=== PATIENT | male | born 1940 | race Caucasian/White ===

== ENCOUNTER → 2018-10-29 15:13 | Outpatient (CLI) | payer MEDICARE, SELFPAY ==
--- NOTE | 2018-10-29 | DI.RAD.S_ITS ---
PROCEDURE: XR CHEST 2V INDICATIONS: COUGH TECHNIQUE: 2 views of the chest were acquired. COMPARISON: None. FINDINGS: Surgical changes and devices: None. Lungs and pleura: Lungs are clear. No pleural effusions or pneumothorax. Mediastinum: Mediastinal contours are normal. Heart size is normal. There is diaphragmatic eventrations. Bones and chest wall: No suspicious bony abnormalities. Soft tissues appear unremarkable. IMPRESSION: No acute cardiopulmonary disease. Dictated by: Oumou Powers M.D. on 10/29/2018 at 17:41 Approved by: Oumou Powers M.D. on 10/29/2018 at 17:42
== END ==
PROVIDERS: PCP Student in an Organized Health Care Education/Training Program; Visit Provider Student in an Organized Health Care Education/Training Program
DX: R05 Cough (principal)
CPT/HCPCS: 71046

== ENCOUNTER → 2021-06-11 09:56 | Outpatient (CLI) | payer MEDICARE, SELFPAY ==
--- NOTE | 2021-06-27 07:54 | PM.CARDMON.1 ---
Economics Analyst Report Referral & Results Date Patient Seen: 06/11/21 Requesting provider: Elaine Kent Indication: Syncope Duration of monitoring (days): 10 Diary information: There were no patient events to review Data: Minimum heart rate identified was 46 beats per minute at 08:27 on 06/19/2021 Maximum sinus heart rate was 121 beats per minute at 10:42 on 06/19/2021 Maximum overall heart rate was 235 beats per minute at 10:41 on 06/15/2021 during a 4 beat run of nonsustained ventricular tachycardia Less than 1% of identified beats were ventricular or supraventricular ectopic in origin, which would classify them as rare. There were 2 runs of nonsustained monomorphic ventricular tachycardia with the fastest being the 4 beat run noted above and the longest being 6 beats at a rate of 104 beats per minute There were 20 runs of SVT as well with the fastest being a 39.9 second run at 190 beats per minute and this was also the longest run of SVT There were no notable pauses of 3 seconds or longer There were no episodes of atrial fibrillation identified Impression: 10 day monitoring tech demonstrating 2 brief runs of nonsustained ventricular tachycardia as above. Also very rare very brief runs of SVT Clinical correlation suggested
== END ==
PROVIDERS: PCP Student in an Organized Health Care Education/Training Program; Referring Provider Student in an Organized Health Care Education/Training Program; Visit Provider Student in an Organized Health Care Education/Training Program
DX: R55 Syncope and collapse (principal)
CPT/HCPCS: 93246; 93248

== ENCOUNTER 2022-01-04 13:49 | Emergency (ER) | payer MEDICARE, SELFPAY ==
[2022-01-04] VITALS (12 sets, daily range): BP systolic 134–192; BP diastolic 60–88; PULSE 57–111; RESP 15–31; TEMP 36.4; O2SAT 94–97
--- NOTE | 2022-01-04 13:53 | DI.RAD.S_ITS ---
PROCEDURE: XR CHEST 1V INDICATIONS: chest pain TECHNIQUE: One view of the chest was acquired. COMPARISON: [facility], CR, XR CHEST 2V, 10/29/2018, 15:22. FINDINGS: Surgical changes and devices: None. Lungs and pleura: Lungs appear clear. No pleural effusions or pneumothorax. Mediastinum: Mediastinal contours appear unchanged. Heart size is at the upper limits of normal. Bones and chest wall: No suspicious bony lesions. Overlying soft tissues appear unremarkable. IMPRESSION: No acute cardiopulmonary abnormality. If clinically indicated consider two-view chest radiograph or CT of the chest for further evaluation. Dictated by: Colt Jordan M.D. on 01/04/2022 at 15:10 Approved by: Colt Jordan M.D. on 01/04/2022 at 15:11
--- NOTE | 2022-01-04 14:09 | ED_ITS ---
HPI - SOB/Dyspnea General Chief Complaint: Shortness of Breath/Dyspnea Stated Complaint: states poss Pnuemonia/ cardiac embolism- PCP ref Time Seen by Provider: 01/04/22 13:57 Source: patient Mode of arrival: Ambulatory Limitations: no limitations History of Present Illness HPI Narrative: Patient is a 81-year-old male history of hyperlipidemia prediabetic hypertension presenting today with cough and some chest heaviness. He was diagnosed with COVID by home test about 9-10 days ago. His symptoms were headache some nasal congestion. He said it has gotten a little bit worse. Now he has been having some heaviness in his chest the CT past couple of days. He is coughing up some thick yellow stuff. He denies shortness of breath. He denies any fevers or chills although he is slightly clammy now. Related Data Home Medications Medication Instructions Recorded Confirmed multivitamin 1 tab PO DAILY 10/28/18 02/27/21 Respironics Remstar CPAP #1 ea 11/25/18 02/27/21 atorvastatin 10 mg tablet 5 mg PO DAILY 07/27/19 02/27/21 metformin 1,000 mg tablet 1,000 mg PO BID 01/25/20 02/27/21 lisinopril 10 mg tablet 10 mg PO DAILY 02/27/21 01/04/22 Allergies Allergy/AdvReac Type Severity Reaction Status Date / Time No Known Drug Allergies Allergy Verified 01/04/22 14:16 Review of Systems Review of Systems Narrative: GENERAL: Denies chills, fatigue, malaise, fever, sweats, travel HEENT: Denies sinus pain, ear pain, sore throat, difficulty swallowing, neck pain RESPIRATORY: See HPI CARDIOVASCULAR: Denies chest pain, palpitations, orthopnea, edema GASTROINTESTINAL: Denies nausea, vomiting, abdominal pain, diarrhea, constipation, melena. : Denies dysuria, frequency, incontinence, hematuria, urinary retention, flank pain. MUSCULOSKELETAL: Denies weakness, joint pain, or bony pain SKIN: No rash, no erythema, no pruritus NEUROLOGIC: Denies weakness, dizziness, headache, numbness, change in speech, confusion PSYCHIATRIC: No concerning psychosocial issues. 12 point review of systems is negative except for those stated above and HPI Patient History Medical History Insomnia rn urgent care associated with adverse incidents (~10/2020) Obesity (BMI 30-39.9) Obstructive sleep apnea of adult Snoring Type 2 diabetes mellitus Social History Smoking Status: Former smoker alcohol intake: current Smoking Status: Former smoker alcohol intake frequency: 0-2 drinks per day Substance Use Type: does not use Exam Initial Vital Signs Initial Vital Signs: Vital Signs Temperature 97.5 F L 01/04/22 13:50 Pulse Rate 60 01/04/22 13:50 Respiratory Rate 24 01/04/22 13:50 Blood Pressure 192/88 H 01/04/22 13:50 Pulse Oximetry 96 01/04/22 13:50 Oxygen Delivery Method 01/04/22 13:50 GENERAL: Alert pleasant 81-year-old male and in no acute distress. HEENT: Head atraumatic,EOMI, pupils reactive, face symmetric, moist mucous membranes CARDIOVASCULAR: Regular rate and rhythm without murmurs, rubs or gallops. RESPIRATORY: Breath sounds equal bilaterally, no wheezes rales or rhonchi. ABDOMEN: Soft, nontender. Normoactive bowel sounds all 4 quadrants. No guarding or rebound. EXTREMITIES: Normal range of motion, no clubbing or edema. Neurovascularly intact NEUROLOGICAL: Alert and oriented x4.Normal gait and speech. SKIN: Warm, dry, no laceration, no petechiae, no rashes or lesions. Course Orders Ordered: ED Orders 01/04/22 13:53 XR chest 1V Stat 01/04/22 14:02 EKG-12 Lead Stat 01/04/22 14:15 Consult to CIVIL ENGINEER'S AIDE - Anesthesia Assistant Stat 01/04/22 14:20 Complete Blood Count AUTO DIFF Stat Comprehensive Metabolic Panel Stat Lactate (Lactic Acid) Stat Lipase Stat Magnesium Stat Procalcitonin Stat Troponin & CK Cardiac Panel Stat 01/04/22 14:34 Blood Culture Stat Vital Signs Vital signs: Vital Signs - 8 hr 01/04/22 13:50 01/04/22 13:55 01/04/22 13:56 Temperature 97.5 F L Pulse Rate 60 70 Respiratory Rate 24 24 Blood Pressure 192/88 H 192/88 H Pulse Oximetry 96 96 Oxygen Delivery Method Room Air 01/04/22 13:56 01/04/22 14:00 01/04/22 14:01 Temperature Pulse Rate 74 66 66 Respiratory Rate 15 18 19 Blood Pressure Pulse Oximetry 96 97 96 Oxygen Delivery Method 01/04/22 14:01 01/04/22 14:30 01/04/22 14:34 Temperature Pulse Rate 61 Respiratory Rate 22 Blood Pressure 179/81 H 150/67 H Pulse Oximetry 97 Oxygen Delivery Method 01/04/22 14:34 01/04/22 15:00 01/04/22 15:00 Temperature Pulse Rate 59 L 60 Respiratory Rate 21 26 H Blood Pressure 159/71 H Pulse Oximetry 97 96 Oxygen Delivery Method 01/04/22 15:30 01/04/22 16:00 01/04/22 16:30 Temperature Pulse Rate 111 H 61 57 L Respiratory Rate 31 H 23 17 Blood Pressure Pulse Oximetry 97 94 95 Oxygen Delivery Method 01/04/22 16:41 Temperature Pulse Rate Respiratory Rate Blood Pressure 134/60 Pulse Oximetry Oxygen Delivery Method MDM - SOB/Dyspnea Lab Data Result diagrams: 01/04/22 14:20 01/04/22 14:20 Labs: Lab Results 01/04/22 01/04/22 01/04/22 Range/Units 14:20 14:20 14:20 WBC 7.3 (4.5-11.0) X10^3/uL RBC 4.17 L (4.5-5.9) X10^6/uL Hgb 13.4 L (13.5-17.5) g/dL Hct 39.0 L (41-53) % MCV 93.5 (80-100) fL MCH 32.2 (26-34) PG MCHC 34.5 (30-36) % RDW 13.5 (11.6-14.8) % Plt Count 301 (150-400) X10^3/uL Neut % (Auto) 58.9 (50-75) % Lymph % (Auto) 24.2 L (25-40) % [place] % (Auto) 11.2 (3-14) % Eos % (Auto) 4.5 H (2-4) % Baso % (Auto) 1.2 (0-2) % Neut # (Auto) 4300 (1616-2168) /uL Lymph # (Auto) 1800 (9042-6312) /uL [place] # (Auto) 800 (0-900) /uL Eos # (Auto) 300 (0-450) /uL Baso # (Auto) 100 (0-100) /uL Sodium 139 (137-145) mmol/L Potassium 4.5 (3.4-5.1) mmol/L Chloride 104 (98-107) mmol/L Carbon Dioxide 29 (22-32) mmol/L BUN 19 (9-20) mg/dL Creatinine 0.91 (0.66-1.25) mg/dL Estimated GFR > 60 (>60) mL/min BUN/Creatinine Ratio 20.9 (6-22) Glucose 120 H (80-110) mg/dL Lactate 2.1 (0.7-2.1) mmol/L Calcium 8.9 (8.4-10.2) mg/dL Magnesium 2.2 (1.6-2.3) mg/dL Total Bilirubin 0.4 (0.2-1.3) mg/dL AST 20 (17-59) IU/L ALT 18 (<50) IU/L Alkaline Phosphatase 101 (38-126) U/L Total Creatine Kinase 45 L (55-170) U/L CK-MB (CK-2) TNP CK-MB (CK-2) Rel Index TNP Troponin I < 0.012 (0.01-0.034) ng/mL Total Protein 7.3 (6.3-8.2) g/dL Albumin 4.0 (3.5-5.0) g/dL Globulin 3.3 (1.7-4.1) g/dL Albumin/Globulin Ratio 1.2 (1.0-2.8) Lipase 68 (23-300) U/L Procalcitonin (<0.5) ng/mL 01/04/22 Range/Units 14:20 WBC (4.5-11.0) X10^3/uL RBC (4.5-5.9) X10^6/uL Hgb (13.5-17.5) g/dL Hct (41-53) % MCV (80-100) fL MCH (26-34) PG MCHC (30-36) % RDW (11.6-14.8) % Plt Count (150-400) X10^3/uL Neut % (Auto) (50-75) % Lymph % (Auto) (25-40) % [place] % (Auto) (3-14) % Eos % (Auto) (2-4) % Baso % (Auto) (0-2) % Neut # (Auto) (2964-0963) /uL Lymph # (Auto) (5592-5467) /uL [place] # (Auto) (0-900) /uL Eos # (Auto) (0-450) /uL Baso # (Auto) (0-100) /uL Sodium (137-145) mmol/L Potassium (3.4-5.1) mmol/L Chloride (98-107) mmol/L Carbon Dioxide (22-32) mmol/L BUN (9-20) mg/dL Creatinine (0.66-1.25) mg/dL Estimated GFR (>60) mL/min BUN/Creatinine Ratio (6-22) Glucose (80-110) mg/dL Lactate (0.7-2.1) mmol/L Calcium (8.4-10.2) mg/dL Magnesium (1.6-2.3) mg/dL Total Bilirubin (0.2-1.3) mg/dL AST (17-59) IU/L ALT (<50) IU/L Alkaline Phosphatase (38-126) U/L Total Creatine Kinase (55-170) U/L CK-MB (CK-2) CK-MB (CK-2) Rel Index Troponin I (0.01-0.034) ng/mL Total Protein (6.3-8.2) g/dL Albumin (3.5-5.0) g/dL Globulin (1.7-4.1) g/dL Albumin/Globulin Ratio (1.0-2.8) Lipase (23-300) U/L Procalcitonin 0.06 (<0.5) ng/mL Imaging Data Chest x-ray: Radiologist's Impression: XRay Report Signed Patient: Socrates Taylor MR#: [id number] : 1940 Acct:[id number] Age/Sex: 81 / M Date of Service: 01/04/22 Loc: ED Accession Number: [id number] ?? Procedure: XR chest 1V Ordering Provider: Domenica Heller D.O. PROCEDURE:? XR CHEST 1V ? INDICATIONS:? chest pain ? TECHNIQUE:? One view of the chest was acquired.? ? COMPARISON:? [facility], CR, XR CHEST 2V, 10/29/2018, 15:22. ? FINDINGS:? ? Surgical changes and devices:? None.? ? Lungs and pleura:? Lungs appear clear.? No pleural effusions or pneumothorax.? ? Mediastinum:? Mediastinal contours appear unchanged.? Heart size is at the upper limits of normal.? ? Bones and chest wall:? No suspicious bony lesions.? Overlying soft tissues appea r unremarkable.? ? IMPRESSION:? No acute cardiopulmonary abnormality. ? If clinically indicated consider two-view chest radiograph or CT of the chest for further evaluation. ? ? Dictated by: Colt Jordan M.D. on 01/04/2022 at 15:10 ? ? ECG Data Interpretation: Low voltage sinus rhythm rate 62 OR interval 174 QRS 84 QTC 395 PVC noted MDM Narrative Medical decision making narrative: The patient overall appears well chest x-ray negative. Blood work is reassuring. No sign of sepsis. At this time likely post COVID symptoms. No need for admission. Discharge Plan Departure Patient Disposition: Home Clinical Impression: COVID-19 Instructions: COVID-19 Activity Restrictions/Additional Instructions: *You have been diagnosed with COVID-19 *What to do: He likely or still having symptoms of COVID-19. At this time no need for antibiotics your blood work looks good no pneumonia on your chest x-ray *Continue to take medications as directed *Follow up with your primary care provider in 2-3 days or call [phone] *Return to ER if you should have increasing shortness of breath, chest pain or any new, worsening or concerning symptoms Prescriptions: No Action multivitamin tablet 1 tab PO DAILY (DME) Respironics Remstar CPAP Qty: 1 Dose Instruction: As directed Label Comments: Pressure: 8-16 cmH2O DME: [facility] Instructions: As directed atorvastatin 10 mg tablet 5 mg PO DAILY metformin 1,000 mg tablet 1,000 mg PO BID lisinopril 10 mg tablet 10 mg PO DAILY Referrals: Elaine Kent PA-C [Primary Care Provider] - Visit Report Forms: Patient Portal/API
[2022-01-04 14:43] LABS: Add Manual Diff / Slide Review NO; Basophils Absolute Auto 100 /uL (0-100); Basophils Percent Auto 1.2 % (0-2); Eosinophils Absolute Auto 300 /uL (0-450); Eosinophils Percent Auto 4.5 % (2-4); Hemoglobin 13.4 g/dL (13.5-17.5); Lymphocytes Absolute Auto 1800 /uL (1100-4500); Lymphocytes Percent Auto 24.2 % (25-40); Mean Corpuscular HGB Conc 34.5 % (30-36); Mean Corpuscular Hemoglobin 32.2 PG (26-34); Mean Corpuscular Volume 93.5 fL (80-100); Monocytes Absolute Auto 800 /uL (0-900); Monocytes Percent Auto 11.2 % (3-14); Neutrophils Absolute Auto 4300 /uL (1500-7000); Neutrophils Percent Auto 58.9 % (50-75); Platelet Count 301 X10^3/uL (150-400); Red Blood Cell Count 4.17 X10^6/uL (4.5-5.9); Red Cell Distribution Width 13.5 % (11.6-14.8); White Blood Cell Count 7.3 X10^3/uL (4.5-11.0)
[2022-01-04 15:23] LABS: Lactate (Lactic Acid) 2.1 mmol/L (0.7-2.1)
[2022-01-04 15:25] LABS: Alanine Aminotransferase 18 IU/L (<50); Albumin Globulin Ratio 1.2 (1.0-2.8); Alkaline Phosphatase 101 U/L (38-126); Aspartate Aminotransferase 20 IU/L (17-59); BUN Creatinine Ratio 20.9 (6-22); Bilirubin Total 0.4 mg/dL (0.2-1.3); Blood Urea Nitrogen 19 mg/dL (9-20); Calcium 8.9 mg/dL (8.4-10.2); Carbon Dioxide 29 mmol/L (22-32); Chloride 104 mmol/L (98-107); Creatine Kinase 45 U/L (55-170); Estimated Glomerular Filt Rate > 60 mL/min (>60); Globulin 3.3 g/dL (1.7-4.1); Glucose 120 mg/dL (80-110); HEMOLYSIS < 15 (0-50); Lipase 68 U/L (23-300); Magnesium 2.2 mg/dL (1.6-2.3); Potassium 4.5 mmol/L (3.4-5.1); Sodium 139 mmol/L (137-145); Total Protein 7.3 g/dL (6.3-8.2)
--- NOTE | 2022-01-04 15:33 | CM.SWNOTE ---
TERRAZZO WORKER HELPER Note Patient is 81 y/o male who presents to ED due to recommendation from PCP EVE Roberson due to concern for SOB and hx of Covid 9 days ago. Patient endorses regular follow up with PCP, patient's insurance is [facility] and Medicare. Patient presents as A/Ox4, endorses he is independent with ADLs. Patient's a few weeks ago after being on hospice for 2.5 years, shortly after that his son's . Patient resides alone but states he has good neighbors, has family in [place] and [place]. 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 Patient presents as tearful due to the recent loss of his but well adjusted and appropriate with his grief. Patient endorses his plans to take things day by day to find his new routine during this transition. Patient endorses that Hospice has followed up with patient for bereavement services but patient states he has not been ready yet due to recent SOB and Covid dx. Patient endorses he will reach out to them when he is ready. Patient denies further needs from TERRAZZO WORKER HELPER, but enjoys conversation. Patient shares life stories and rediscovers new hobbies and ways to spend his time while speaking with TERRAZZO WORKER HELPER. TERRAZZO WORKER HELPER reviews the above with ED provider Dr. Heller. Plan: patient to d/c to home when medically clear, patient to maintain regular f/u with PCP and f/u with Hospice bereavement services when ready. RADU Muller
[2022-01-04 15:34] LABS: Troponin I < 0.012 ng/mL (0.01-0.034)
[2022-01-04 15:39] LABS: Procalcitonin 0.06 ng/mL (<0.5)
[2022-01-04 16:39] LABS: Reflexed Lactate in 2 Hours Y
== END 2022-01-04 16:47 | disposition home or self-care (01) ==
PROVIDERS: Emergency Provider Emergency Medicine; PCP Student in an Organized Health Care Education/Training Program
DX: U07.1 COVID-19 (principal); R07.9 Chest pain, unspecified
CPT/HCPCS: 36415; 71045; 80053; 82550; 83605; 83690; 83735; 84145; 84484; 85025; 87040; 93005; 93010; 99284

== ENCOUNTER → 2022-02-28 13:11 | Outpatient (CLI) | payer MEDICARE, SELFPAY ==
--- NOTE | 2022-02-28 13:14 | DI.RAD.S_ITS ---
PROCEDURE: XR LUMBAR SPINE 2-3V INDICATIONS: CHRONIC WORSENING LOW BACK PAIN TECHNIQUE: 3 views of the lumbar spine were acquired. COMPARISON: [facility], , L-SPINE 2-3 VIEWS, 09/07/2014, 14:21. FINDINGS: Bones: There are 5 [id number] lumbar vertebral bodies present. Degenerative changes including intervertebral disc space narrowing, endplate sclerosis, osteophytosis and facet sclerosis are present throughout the lumbar spine. These are slightly increased in extent when compared with the study dated September 07, 2014. No new compression deformities. No suspicious bony lesions. Soft tissues: Overlying bowel gas pattern is normal. No suspicious soft tissue calcifications. IMPRESSION: Degenerative change, slightly increased from 2014. Dictated by: Starla Perry M.D. on 02/28/2022 at 15:36 Approved by: Starla Perry M.D. on 02/28/2022 at 15:37
--- NOTE | 2022-02-28 13:14 | DI.RAD.S_ITS ---
PROCEDURE: XR HIP W PEL IF DONE RT 2V INDICATIONS: RIGHT HIP PAIN TECHNIQUE: AP pelvis with lateral view(s) of the right hip(s). COMPARISON: None. FINDINGS: Bones: No fractures or dislocations. Pelvic ring appears intact. No suspicious bony lesions. Soft tissues: No acute fracture or dislocation. There is moderate right hip joint space narrowing and small collar osteophytes. On the left, there is severe hip joint space narrowing, large collar osteophytes, and deformity of the femoral head. IMPRESSION: 1. 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 2. Deformity of the left femoral head can be associated with a vascular necrosis. If further characterization is warranted, MRI of the pelvis could be used. Dictated by: Starla Perry M.D. on 02/28/2022 at 15:34 Approved by: Starla Perry M.D. on 02/28/2022 at 15:35
== END ==
PROVIDERS: PCP Student in an Organized Health Care Education/Training Program; Referring Provider Student in an Organized Health Care Education/Training Program; Visit Provider Student in an Organized Health Care Education/Training Program
DX: M47.816 Spondylosis without myelopathy or radiculopathy, lumbar region (principal); M16.0 Bilateral primary osteoarthritis of hip; M54.50 Low back pain, unspecified; M25.551 Pain in right hip; G89.29 Other chronic pain
CPT/HCPCS: 72100; 73502

== ENCOUNTER 2023-07-16 08:47 | Emergency (ER) | payer MEDICARE, SELFPAY ==
[2023-07-16 08:50] VITALS: BP 151/67; PULSE 82; RESP 18; TEMP 36.5; O2SAT 97; BMI 29.8
[2023-07-16 09:47] LABS: Influenza A - CEPHEID Flu A NEGATIVE (NEGATIVE); Influenza B - CEPHEID Flu B NEGATIVE (NEGATIVE); Respiratory Syncytial Virus Negative (Negative)
[2023-07-16 09:48] LABS: COVID-19 CEPHEID 4-PLEX PCR Negative (Negative)
--- NOTE | 2023-07-16 11:26 | ED_ITS ---
HPI - URI/Sore Throat <Tequila Ponce PA-C - Last Filed: 07/16/23 15:48> General Chief Complaint: Upper Respiratory Symptoms Stated Complaint: lump in through, chest slim, phlegm Time Seen by Provider: 07/16/23 08:58 Source: patient Mode of arrival: Ambulatory History of Present Illness HPI Narrative: Patient is an 83-year-old male with a very remote history of smoking and asthma when he was a young adult, who presents with 3 days of fatigue, productive cough with yellow sputum, itchy eyes. He denies fever or chills. He denies shortness of breath at rest but experiences it with mild exertion such as walking in his house. The coughing fits take his breath away. He has been drinking plenty of fluids, minimal appetite. He denies chest pain, dizziness. He has not taken any [id number] medicines. Related Data Home Medications Medication Instructions Recorded Confirmed multivitamin 1 tab PO DAILY 10/28/18 02/27/21 Respironics Remstar CPAP #1 ea 11/25/18 02/27/21 atorvastatin 10 mg tablet 5 mg PO DAILY 07/27/19 02/27/21 metformin 1,000 mg tablet 1,000 mg PO BID 01/25/20 02/27/21 lisinopril 10 mg tablet 10 mg PO DAILY 02/27/21 01/04/22 Previous Rx's Medication Instructions Recorded albuterol sulfate 90 mcg/actuation 2 puff inhalation QID PRN 07/16/23 aerosol inhaler shortness of breath or wheezing #8.5 grams Allergies Allergy/AdvReac Type Severity Reaction Status Date / Time No Known Drug Allergies Allergy Verified 01/04/22 14:16 Review of Systems <Tequila Ponce PA-C - Last Filed: 07/16/23 15:48> Review of Systems ROS Unobtainable: All systems reviewed & are unremarkable except as noted in HPI and below Patient History <Tequila Ponce PA-C - Last Filed: 07/16/23 15:48> Medical History 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 Well-developed patient, in no acute distress. NEURO: AOx3. HEAD: Atraumatic. Normocephalic. EYES: Pupils equal round and reactive. Extraocular motions intact. No scleral icterus. Mild conjunctivitis. ENT: Nose without bleeding or purulent drainage. Throat without erythema, tonsillar hypertrophy or exudate. Airway patent. CARDIOVASCULAR: Regular rate and rhythm without murmurs, gallops, or rubs. RESPIRATORY: Clear to auscultation. Breath sounds equal bilaterally. Trace expiratory wheeze. SKIN: No rash or erythema of visible areas Initial Vital Signs Initial Vital Signs: Vital Signs Temperature 97.7 F 07/16/23 08:50 Pulse Rate 82 07/16/23 08:50 Respiratory Rate 18 07/16/23 08:50 Blood Pressure 151/67 H 07/16/23 08:50 Pulse Oximetry 97 07/16/23 08:50 Oxygen Delivery Method Room Air 07/16/23 08:50 <Domenica Heller DO - Last Filed: 07/17/23 07:39> Initial Vital Signs Initial Vital Signs: Vital Signs Temperature 97.7 F 07/16/23 08:50 Pulse Rate 82 07/16/23 08:50 Respiratory Rate 18 07/16/23 08:50 Blood Pressure 151/67 H 07/16/23 08:50 Pulse Oximetry 97 07/16/23 08:50 Oxygen Delivery Method Room Air 07/16/23 08:50 Course <Tequila Ponce PA-C - Last Filed: 07/16/23 15:48> Orders Ordered: Discontinued Medications Albuterol (Albuterol 2.5 Mg/3 Ml Neb (Adult)) 2.5 mg INH NOW ONE Stop: 07/16/23 11:26 Last Admin: 07/16/23 11:37 Dose: 2.5 mg Documented By: SAT Vital Signs Vital signs: Vital Signs - 8 hr 07/16/23 08:50 07/16/23 11:37 07/16/23 12:06 Temperature 97.7 F 98.9 F Pulse Rate 82 69 71 Respiratory Rate 18 18 22 Blood Pressure 151/67 H 148/65 H Pulse Oximetry 97 98 98 Oxygen Delivery Method Room Air Room Air Room Air <Domenica Heller DO - Last Filed: 07/17/23 07:39> Orders Ordered: Discontinued Medications Albuterol (Albuterol 2.5 Mg/3 Ml Neb (Adult)) 2.5 mg INH NOW ONE Stop: 07/16/23 11:26 Last Admin: 07/16/23 11:37 Dose: 2.5 mg Documented By: SAT Vital Signs Vital signs: Vital Signs - 8 hr 07/16/23 08:50 07/16/23 11:37 07/16/23 12:06 Temperature 97.7 F 98.9 F Pulse Rate 82 69 71 Respiratory Rate 18 18 22 Blood Pressure 151/67 H 148/65 H Pulse Oximetry 97 98 98 Oxygen Delivery Method Room Air Room Air Room Air MDM - URI/Sore Throat <Tequila Ponce PA-C - Last Filed: 07/16/23 15:48> Lab Data Labs: Lab Results 07/16/23 Range/Units 08:56 SARS-CoV-2 (PCR) Negative (Negative) Influenza A (RT-PCR) Flu a negative (NEGATIVE) Influenza B (RT-PCR) Flu b negative (NEGATIVE) RSV (PCR) Negative (Negative) MDM Narrative Medical decision making narrative: Multiple etiologies for patient's symptoms considered including, but not limited to: Viral respiratory infection, bacterial pneumonia, asthma exacerbation Patient is an 83-year-old male with normal vital signs who denies fever and chills. His lung sounds are clear with scattered expiratory wheeze. He has a remote history of asthma and smoking. He reports intense coughing fits. His respiratory PCR panel is negative for COVID, flu, RSV. We will try albuterol neb in the emergency room and reassess. Patient feels better like he can breathe easier after the albuterol. I do not hear any wheeze anymore. Patient also instructed on incentive spirometer use by RT. We will prescribe outpatient albuterol MDI. Discussed return precautions, symptom treatment and expectations. Patient's symptoms improved over duration of stay with above-stated therapies. Findings and discharge diagnosis discussed with patient/family followed by verbalization of understanding Return precautions discussed with patient/family whom verbalize understanding of diagnosis and plan <Domenica Arron, - Last Filed: 07/17/23 07:39> Lab Data Labs: Lab Results 07/16/23 Range/Units 08:56 SARS-CoV-2 (PCR) Negative (Negative) Influenza A (RT-PCR) Flu a negative (NEGATIVE) Influenza B (RT-PCR) Flu b negative (NEGATIVE) RSV (PCR) Negative (Negative) Discharge Plan Departure Patient Disposition: Home Clinical Impression: Bronchitis Upper respiratory infection Qualifiers: URI type: unspecified viral URI Qualified Code(s): J06.9 - Acute upper respiratory infection, unspecified Instructions: DI for Acute Bronchitis Activity Restrictions/Additional Instructions: *You have been diagnosed with viral respiratory infection. You have been prescribed an albuterol inhaler to use when he feels short of breath or when you are having coughing fits. This medicine helps relax the muscles around your airways and may improve your breathing. Please continue to drink plenty of water and rest. I suspect she will feel better in the next 2-3 days, although a viral cough can last for several weeks. Please return to the emergency room if you feel chest pain, shortness of breath not associated with coughing, a high fever or other concerns. *What to do: *Please continue to take your regular medications as directed. [x] New medication prescriptions sent to your pharmacy: [facility] [ ] New medication written as a paper prescription [ ] No new medications given *Please follow up with your primary care provider in 2-3 days, call for an appointment. Let them know you were seen in the Emergency Department and that we ask that you be seen in follow up. We will electronically transmit a record of today's note if your PCP is in our system *If you do not have a primary care provider please contact the [facility] Resource line at [phone]. They will ask some questions about your medical history and help get you set up with a doctor in the community. *Return to Emergency Department if you should have any new, worsening or concerning symptoms, such as [fever greater than 101 F, shaking chills, worsening pain, persistent vomiting or other concerning symptoms]. Prescriptions: New albuterol sulfate 90 mcg/actuation HFA aerosol inhaler 2 puff inhalation QID PRN (Reason: shortness of breath or wheezing) Qty: 8.5 0RF No Action multivitamin tablet 1 tab PO DAILY (DME) Respironics Remstar CPAP Qty: 1 Dose Instruction: As directed Patient Comments: Pressure: 8-16 cmH2O DME: [facility] Rx Instructions: As directed atorvastatin 10 mg tablet 5 mg PO DAILY metformin 1,000 mg tablet 1,000 mg PO BID lisinopril 10 mg tablet 10 mg PO DAILY Referrals: Elaine Kent [facility] [Primary Care Provider] - Stand Alone Forms: Patient Portal/API ED Sign-out <Domenica Heller DO - Last Filed: 07/17/23 07:39> Cosign ED Attending Cosignature Attestation: I was available for consultation.
[2023-07-16 11:37] VITALS: PULSE 69; RESP 18; O2SAT 98
[2023-07-16] MEDS: ALBUTEROL 2.5 MG/3 ML NEB (ADULT) INH (11:37)
[2023-07-16 12:06] VITALS: BP 148/65; PULSE 71; RESP 22; TEMP 37.2; O2SAT 98
== END 2023-07-16 12:08 | disposition home or self-care (01) ==
PROVIDERS: Emergency Medicine; Emergency Provider Physician Assistant; PCP Student in an Organized Health Care Education/Training Program
DX: J40 Bronchitis, not specified as acute or chronic (principal); J06.9 Acute upper respiratory infection, unspecified; Z87.891 Personal history of nicotine dependence
CPT/HCPCS: 0241U; 94640; 99283; J7613

== ENCOUNTER → 2024-05-10 14:22 | Outpatient (CLI) | payer MEDICARE, SELFPAY ==
--- NOTE | 2024-05-10 14:25 | DI.RAD.S_ITS ---
PROCEDURE: XR HIP W PEL IF DONE LT 2V INDICATIONS: HIP PAIN TECHNIQUE: Left views of the hip were acquired. COMPARISON: [facility], CR, XR HIP W PEL IF DONE RT 2V, 02/28/2022, 13:55. FINDINGS: Bones: No fractures or dislocations. No suspicious bony lesions. The visualized pelvic ring appears intact. Severe left hip joint space narrowing with flattening the femoral head, subchondral cysts and sclerosis Soft tissues: No suspicious soft tissue calcifications or masses. IMPRESSION: Advanced left hip osteoarthritis, similar to the prior Approved by: Liborio Beatty M.D. on 05/10/2024 at 18:42
== END ==
LOC: RAD 14:24
PROVIDERS: PCP Family Medicine; Referring Provider Family Medicine; Visit Provider Family Medicine
DX: M16.12 Unilateral primary osteoarthritis, left hip (principal); M25.552 Pain in left hip
CPT/HCPCS: 73502